=== PATIENT | female | born 1975 | race Two or more races ===

== ENCOUNTER 2024-02-21 02:23 | Inpatient (IN) | payer MEDICAID, OTHER ==
[~2024-02-21] VITALS: Ht 154.9 cm; Wt 70.2 kg
[2024-02-21 03:05] LABS: Basophils # (auto) 0 10 ^3/uL (0-0.2); Basophils % (auto) 0.2 % (0.0-2.0); Eosinophils # (auto) 0 10 ^3/uL (0-0.8); Eosinophils % (auto) 0.1 % (0.0-7.0); Hematocrit 35.3 % (36.0-46.0); Hemoglobin 11.9 g/dL (12.2-16.2); Lymphocytes # (auto) 1.1 10 ^3/uL (0.4-5.4); Lymphocytes % (auto) 8.8 % (10.0-50.0); Mean Corpuscular Hemoglobin 31.7 pg (28.0-32.0); Mean Corpuscular Hgb Conc. 33.8 g/dL (32.0-36.0); Mean Corpuscular Volume 93.7 fL (80.0-100.0); Monocytes # (auto) 0.3 10 ^3/uL (0-1.3); Monocytes % (auto) 2.5 % (0.0-12.0); Neutrophils # (auto) 10.8 10 ^3/uL (1.6-8.6); Neutrophils % (auto) 88.4 % (37.0-80.0); Nucleated Red Blood Cells % 0.1 %; Platelet Count (auto) 257 10^3/uL (140-450); Red Blood Cells 3.76 10^6/uL (4.0-5.20); Red Cell Distribution Width 13.3 % (11.8-14.3); White Blood Cell 12.3 10^3/uL (4.4-10.8)
[2024-02-21 03:15] LABS: Chloride 105 mmol/L (98-107); Potassium 3.4 mmol/L (3.5-5.1); Sodium 136 mmol/L (136-145)
[2024-02-21 03:16] LABS: Anion Gap 3 (5-15); Carbon Dioxide 28 mmol/L (20-31)
[2024-02-21 03:17] LABS: Calcium 9.5 mg/dL (8.7-10.4)
[2024-02-21 03:21] LABS: Blood Urea Nitrogen 16 mg/dL (9-23); Glucose 128 mg/dL (74-106); INR 1.16 (0.9-1.15); Partial Thromboplastin Time 32.7 SEC (24.5-34.5); Prothrombin Time 12.2 sec (9.3-11.8)
[2024-02-21 04:00] VITALS: PULSE 85; RESP 18; O2SAT 94
[2024-02-21] MEDS: IPRATROPIUM BROM 0.5 MG/2.5ML INH SOL NEB ONE (04:12)
[2024-02-21] MEDS: ALBUTEROL SULF 2.5 MG/0.5ML(0.5%) NEB SOLN NEB ONE (04:13)
[2024-02-21] MEDS ORDERED: MORPHINE SULFATE INJ 2 MG/ml SYRG IV PRN (04:30)
[2024-02-21] MEDS ORDERED: NITROGLYCERIN 0.4 MG SL TAB SL PRN (04:30)
[2024-02-21] MEDS ORDERED: ONDANSETRON HCL 4 MG/2 ML VIAL IV PRN (04:30)
[2024-02-21] MEDS ORDERED: ACETAMINOPHEN 325 MG TAB PO PRN (04:30)
[2024-02-21 04:44] VITALS: BP 131/76; PULSE 83; RESP 20; TEMP 98.4; O2SAT 95
[2024-02-21] MEDS: POTASSIUM CHL 20 Meq TABLET PO ONE ×2 (04:45→08:21)
[2024-02-21] MEDS: methylPREDNISolone SOD SUCC 125 MG/2 ML VL IV ONE (05:13)
[2024-02-21] MEDS: cefTRIAXone 1GM/50ML D5W 50 ML IV ONE (05:14)
[2024-02-21] MEDS: SODIUM CHLORIDE 0.9% 1,000 ML IV ONE (05:33)
[2024-02-21] MEDS ORDERED: IPRATROPIUM BROM 0.5 MG/2.5ML INH SOL NEB PRN (06:00)
[2024-02-21] MEDS ORDERED: ALBUTEROL SULF 2.5 MG/0.5ML(0.5%) NEB SOLN NEB PRN (06:00)
[2024-02-21] MEDS: SODIUM CHLOR 0.9% PF (SALINE LOCK) 10ML VIAL/SYR IV SCH (06:05)
[2024-02-21 06:23] VITALS: TEMP 98.9
[2024-02-21] MEDS: POTASSIUM EFFERVESENT TAB 25 MEQ PO ONE (06:50)
[2024-02-21 07:48] LABS: Urine Bacteria None Seen /hpf (None Seen)
[2024-02-21 07:55] VITALS: PULSE 86; RESP 20; O2SAT 97
[2024-02-21 08:14] LABS: Amphetamine Screen, Urine Neg (NEGATIVE); Barbiturate Scree,Urine Neg (NEGATIVE); Benzodiazephine Screen, Urine Neg (NEGATIVE); Cannabinoid Screen, Urine Pos (NEGATIVE); Cocaine Screen, Urine Pos (NEGATIVE); Opiate Scree,Urine Pos (NEGATIVE); Phencyclidine Screen, Urine Neg (NEGATIVE)
[2024-02-21 08:18] LABS: Urine Blood 2+ /uL (Negative); Urine Clarity Clear (Clear); Urine Color Yellow (Yellow); Urine Mucus FEW (None Seen); Urine Protein, UAD 1+ (Negative); Urine Specific Gravity 1.029 (1.001-1.035); Urine Urobilinogen 2 mg/dL (Negative); Urine WBC 1 /hpf (0 - 5); Urine pH 5.5 (5.0-9.0)
[2024-02-21] MEDS: HYDROcodone-ACET 5/325MG TAB PO PRN (08:20)
[2024-02-21 08:42] LABS: COVID19 ANTIGEN SOFIA FIA NEGATIVE (NEGATIVE); Rapid Influenza A Negative (Negative); Rapid Influenza B Negative (Negative)
[2024-02-21] MEDS: ENOXAPARIN SOD 40 MG/0.4 ML SYRINGE SC SCH (09:53)
[2024-02-21] MEDS: DOXYCYCLINE 100MG/250ML 250 ML IV SCH (10:26)
[2024-02-21] MEDS ORDERED: HYDR-5028 PO (11:57)
[2024-02-21] MEDS ORDERED: HYDR-4924 PO (11:57)
[2024-02-21] MEDS ORDERED: DULO60CA41 PO (11:58)
[2024-02-21 13:32] VITALS: BP 122/77; PULSE 70; RESP 17; O2SAT 99
[2024-02-22] MEDS ORDERED: cefTRIAXone 1GM/50ML D5W 50 ML IV SCH (05:00)
== END 2024-02-21 13:51 | disposition left against medical advice (07) | DRG 720 ==
LOC: ER 02:23 → OVERFLOW 04:32
PROVIDERS: ADMIT Internal Medicine Geriatric Medicine; ATTEND Internal Medicine Geriatric Medicine
DX: A41.50 Gram-negative sepsis, unspecified (principal); J15.69 Pneumonia due to other Gram-negative bacteria; J15.9 Unspecified bacterial pneumonia; L40.59 Other psoriatic arthropathy; E87.6 Hypokalemia; Z20.822 Contact with and (suspected) exposure to COVID-19; I10 Essential (primary) hypertension; F32.A Depression, unspecified; Z98.84 Bariatric surgery status; Z88.2 Allergy status to sulfonamides; F41.0 Panic disorder [episodic paroxysmal anxiety]; N80.9 Endometriosis, unspecified
CPT/HCPCS: 36415; 71045; 71250; 80048; 80307; 81001; 81025; 82306; 82607; 83036; 83880; 84443; 84484; 85025; 85379; 85610; 85730; 87426; 87804; 93005; 94640; 96365; 96375; G0378; J3490